=== PATIENT | male | born 1965 | race Caucasian/White ===

== ENCOUNTER 2023-05-17 06:29 | Day surgery (SDC) | payer MEDICARE, OTHER, SELFPAY ==
[2023-05-12 09:28] VITALS: BMI 30.1
[2023-05-17] VITALS (24 sets, daily range): BP systolic 108–168; BP diastolic 69–111; BMI 30.1; BMI 31.7
[2023-05-17] MEDS: NORMOSOL-R 1000 IV (09:00)
[2023-05-17 09:04] LABS: Glucose - Point of Care 96 mg/dl (70-99)
[2023-05-17 11:06] LABS: Glucose - Point of Care 77 mg/dl (70-99)
[2023-05-17 13:42] LABS: Glucose - Point of Care 100 mg/dl (70-99)
[2023-05-17] MEDS: NSS 1000 IV (14:05)
--- NOTE | 2023-05-17 16:18 | SUR.PHASEI ---
Patient with extended stay in PACU as no room available. CBI running well, snack given at 1500 as patient is a diabetic. Patient repositioned as over 2 hours in PACU. VSS. Dedra Pedro RN BSN.
[2023-05-17 18:49] LABS: Glucose - Point of Care 279 mg/dl (70-99)
[2023-05-17] MEDS: NOVOLOG vial 4 UNITS SC (18:56)
--- NOTE | 2023-05-17 18:59 | SUR.PHASEI ---
Report given to Mellissa. Dedra hlal RN BSN.
[2023-05-17] MEDS: MORPHINE SULFATE 4 MG IV (21:34)
[2023-05-17] MEDS: FLOMAX 0.400000000000000022 MG PO (21:36)
[2023-05-17] MEDS: GLUCOPHAGE 500 MG PO (21:36)
[2023-05-17] MEDS: APRESOLINE 25 MG PO (21:36)
[2023-05-17] MEDS: KLONOPIN 0.5 MG PO (21:39)
[2023-05-17] MEDS: LIPITOR 10 MG PO (21:39)
[2023-05-17] MEDS: ARICEPT 10 MG PO (21:39)
[2023-05-17] MEDS: NAMENDA 10 MG PO (21:39)
[2023-05-17] MEDS: COGENTIN 0.5 MG PO (23:43)
[2023-05-17] MEDS: RISPERDAL 3 MG PO (23:43)
[2023-05-18 03:48] VITALS: BP 129/78
[2023-05-18 06:02] LABS: Hematocrit 38.2 % (39.0-52.0); Hemoglobin 12.8 g/dL (13.0-18.0)
[2023-05-18 06:26] LABS: Blood Urea Nitrogen 19 mg/dl (9-20); Carbon Dioxide 30 mmol/L (22-30); Chloride 98 mmol/L (98-107); Estimated Creatinine Clearance 90 ml/min; Glucose 87 mg/dl (70-99); Potassium 4.5 mmol/L (3.5-5.1); Sodium 136 mmol/L (135-145); eGFR > 60.00
[2023-05-18 07:35] VITALS: BP 112/79
[2023-05-18 08:09] LABS: Glucose - Point of Care 82 mg/dl (70-99)
[2023-05-18] MEDS: PAXIL 40 MG PO (08:18)
[2023-05-18] MEDS: KLONOPIN 0.5 MG PO (08:18)
[2023-05-18] MEDS: NAMENDA 10 MG PO (08:21)
[2023-05-18] MEDS: GLUCOPHAGE 500 MG PO (08:21)
[2023-05-18] MEDS: RISPERDAL 1 MG PO (08:21)
[2023-05-18] MEDS: PROSCAR 5 MG PO (08:21)
[2023-05-18] MEDS: APRESOLINE 25 MG PO (08:22)
[2023-05-18] MEDS: NORVASC 5 MG PO (08:22)
[2023-05-18 08:25] VITALS: BP 112/79
--- NOTE | 2023-05-18 08:52 | W.PN.URO.CBU ---
Today's Communication / Plan
-
TOV
Discharge
Assessment / Plan
-
57M POD 1 s/p TURP
Trial of void this AM
Discharge
Diagnosis
-
Date of Service: May 18, 2023
-
Patient Diagnosis:
BPH
Post Op Day: 1 s/p TURP
Subjective
-
No events overnight
Objective
-
Vital Signs
Temp Pulse Resp BP Pulse Ox
97.8 F 79 16 112/79 95
05/18/23 07:35 05/18/23 08:22 05/18/23 07:35 05/18/23 08:22 05/18/23 07:35
Intake and Output
05/17/23 05/18/23 05/19/23
06:59 06:59 06:59
Intake Total 2450 / 2450
Output Total 3080 / 3080
Balance -630 / -630
Intake:
Oral fluids 1775 / 1775
IV fluids (Total) 675 / 675
Nss 1,000 ml @ 125 mls/hr IV . 625 / 625
Q8H LUDIVINA Rx#:[id number]
norm 50 / 50
Output:
True Urine Output from CBI 3080 / 3080
Laboratory Results
05/18/23 05:41
05/18/23 05:41
Physical Exam
-
General - well developed, well nourished, no acute distress
Chest - clear
Abdomen - soft, non-tender
Nichols in place, clear pink urine off CBI
Skin - warm & dry with no rash
Neuro - AOx3, no motor deficits
Extremities - no clubbing, no cyanosis, no edema
[2023-05-18 09:40] LABS: Glycohemoglobin (HgbA1c) 5.8 % (4.0-5.6)
[2023-05-18 11:31] VITALS: BP 115/80
[2023-05-18 11:35] LABS: Glucose - Point of Care 144 mg/dl (70-99)
--- NOTE | 2023-05-18 12:03 | CM ---
Addendum entered by Geraldine Barlow RN 05/18/23 15:19:
CM spoke with [facility], they will transport at time of discharge. SAMAN reece.
Addendum entered by Geraldine Barlow RN 05/18/23 12:12:
CM spoke with [facility] staff member. The pharmacy they use is [facility] ([phone]). This is not in our system.
Original Note:
Reviewed the chart notes and spoke with the patient at the bedside. The patient resides at [facility] and has a roommate. Per patient, the home is a one story home with a flight to enter. The patient reports no DME/VN/SNF in the past. The
patient had dangelo removed and is waiting to void. CM continues to be available to patient/family and is monitoring medical plan for needs at discharge.
Plan: Discharge back to [facility] with no additional needs being identified at this time.
[2023-05-18 15:49] VITALS: BP 117/76
== END 2023-05-18 16:25 | disposition home or self-care (01) ==
LOC: SDS 06:29
PROVIDERS: ATTENDING PHYSICIAN Urology
DX: N40.1 Benign prostatic hyperplasia with lower urinary tract symptoms (principal); N13.8 Other obstructive and reflux uropathy
CPT/HCPCS: 52630; 88305; 80048; 82962; 83036; 85014; 85018; 87070; 88344

== ENCOUNTER 2023-06-03 09:38 | Emergency (ER) | payer MEDICARE, OTHER, SELFPAY ==
[2023-06-03 09:39] VITALS: BP 116/66
--- NOTE | 2023-06-03 10:21 | ED.GENMED ---
History of Present Illness
General
Chief Complaint: Urinary Symptoms
Source: patient, records and youth care specialist
Exam Limitations: developmental stage
Time Seen by Provider: 06/03/23 10:01
Nursing documentation reviewed up to this point in time: agreed with
Travel History
Have you had any contact with someone who has COVID-19?: No
Do you have any symptoms of coronavirus? Fever > 100 degrees, chills, cough, shortness of breath, sore throat, loss of taste or smell, muscle aches, or headache?: No
History of Present Illness
History of Present Illness:
57-year-old male special-needs with his caregiver presents with urinary burning frequency some blood had prostate biopsy TURP few weeks ago
No fevers no nausea no vomiting
No abdominal pain
Past History
Past History
ED Past Medical History: HTN, Hypercholesterolemia, Psychiatric (Schizophrenia, depression) and Other (BPH, urinary retention)
ED Past Surgical History: Urological
Social History
Tobacco: Non-smoker
Alcohol: None
Drug: None
Personal: Single
Living: with roommate ([facility])
Employment: Not employed
Review of Systems
Review of Systems
All Other Systems: Not applicable
Constitutional: Denies fever or fatigue
ABD/GI: Denies abdominal pain or diarrhea
: Reports dysuria, frequency, urgency and bleeding; Denies flank pain
Phy Exam
Physical Exam
Physical Exam:
Physical Exam
General: no apparent distress, not acutely ill
Neck: No jaundice
Heart: s1/s2 regular rate and rhythm, no murmur. equal radial pulses.
Lungs: no acute respiratory distress. clear bilaterally
Abdomen: Soft not tender
Neuro: alert and oriented. no focal neurological deficits
Skin: no rash
Psychiatric: well kept. interactive and cooperative
Extremities: no edema.
Course
Orders/Labs/Results
Orders:
Orders
06/03/23 09:47
Bladder Scan- Treatment ONCE
06/03/23 11:19
Urinalysis Reflex To Culture Urgent
Date Specimen was Collected: 06/03/23
Time Specimen was Collected:
Urine Microscopic Reflex Cult Urgent
Urine Culture Urgent
BARRY Source: U
Specimen Description:
Obtained by: Random
Date Specimen was Collected: 06/03/23
Time Specimen was Collected: :
06/03/23 12:31
Amoxicillin 875 mg/Clav 125 mg [Augmentin 875 mg/125 mg] 1 tablet PO NOW STA
Abnormal Lab Results
06/03/23
11:19
Urine Ketones 1+ A
(Negative)
Ur Occult Blood Reflex 4+ A
(Negative)
Urine Nitrite (Reflex) Positive A
(Negative)
Urine Bilirubin 1+ A
(Negative)
Leukocyte Esterase Rfl 2+ A
(Negative)
Urine RBC >100 A /HPF
(0-2)
Urine WBC (Reflex) 16-20 A /HPF
(0-5)
Urine Bacteria (Reflex) Moderate A
(Negative)
Urine Albumin (Reflex) 3+ A
(Neg - Trace)
Vital Signs
Initial and Last Documented VS:
Initial Vital Signs
Temp Pulse Resp BP Pulse Ox
97.7 F 66 20 116/66 96
06/03/23 09:39 06/03/23 09:39 06/03/23 09:39 06/03/23 09:39 06/03/23 09:39
Last Documented Vital Signs
Temp Pulse Resp BP Pulse Ox
97.7 F 71 16 129/77 95
06/03/23 09:39 06/03/23 12:08 06/03/23 12:08 06/03/23 12:08 06/03/23 12:08
MDM/Problems Addressed
Differential Diagnosis Includes:
UTI clot retention postop hematuria
MDM/Problems Addressed:
Hematuria. Frequent
Chronic conditions affecting care:
Special needs developmentally challenged
*Pulse Oximetry
Patient hypoxic: no
*Critical Care Note
Total Time (30-74mins, 75-104mins- exclusive of procedures): Not Applicable
Update Note
Update Note:
Update bladder scan noted patient not in retention will check urinalysis
1230 UA noted culture pending will start on antibiotics
ED Attending Note
-
Portions of this chart may have been created with voice recognition software.� Occasional wrong word or��sound alike� substitutions may have occurred due to the inherent limitations of voice recognition software.
Discharge Plan
Departure
Patient Disposition: Home (Routine Discharge)
Date of Disposition: 06/03/23
Time of Disposition: 12:32
Patient with high blood pressure during this ER visit?: No
Condition: Good
Discharge Problem:
Acute UTI
Instructions: Urinary Tract Infection, Adult (DC), Blood in the Urine (Hematuria), Adult (DC)
Prescriptions:
New
amoxicillin-pot clavulanate [Augmentin] 500-125 mg tablet
1 tab PO BID Qty: 14 0RF
phenazopyridine [Pyridium] 200 mg tablet
200 mg PO TID PRN (Reason: Pain) Qty: 6 0RF
No Action
atorvastatin 10 MG tablet
10 mg PO HS
metformin 500 MG tablet
500 mg PO BID
hydralazine 25 MG tablet
25 mg PO BID
amlodipine 5 MG tablet
5 mg PO DAILY
tamsulosin 0.4 MG capsule
0.4 mg PO DAILY@1600
benztropine 0.5 mg tablet
0.5 mg PO HS
clonazepam 1 mg tablet
0.5 mg PO BID
risperidone 3 mg tablet
3 mg PO HS
oxybutynin chloride 5 mg tablet extended release 24hr
5 mg PO DAILY@1600
paroxetine HCl 40 mg tablet
40 mg PO DAILY
risperidone 1 mg tablet
1 mg PO DAILY
memantine 10 mg tablet
10 mg PO BID
donepezil [Aricept] 10 mg Tablet
10 mg PO HS
finasteride 5 mg Tablet
5 mg PO DAILY
Referrals:
Maurice Nieves DO [Family Provider] -
Interventions
Interventions:
*General Assessment Last Done: 06/03/23 10:57
ED- Fall Risk Assessment Last Done: 06/03/23 10:57
*ED COVID-19 Vaccine History Last Done: 06/03/23 09:39
Discharge Date and Time
Print Language: GAMBIAN
[2023-06-03 11:44] LABS: Urine Albumin 3+ (Neg - Trace); Urine Bilirubin 1+ (Negative); Urine Character Very Cloudy (Clear); Urine Color Amber; Urine Glucose Negative (Negative); Urine Ketone 1+ (Negative); Urine Leukocyte 2+ (Negative); Urine Nitrite Positive (Negative); Urine Occult Blood 4+ (Negative); Urine Urobilinogen 1+ (Neg - 1+)
[2023-06-03 12:08] VITALS: BP 129/77
[2023-06-03 12:11] LABS: Urine Bacteria Moderate (Negative); Urine Red Blood Cell >100 /HPF (0-2)
[2023-06-03 12:12] LABS: Urine White Cell 16-20 /HPF (0-5)
[2023-06-03] MEDS: AUGMENTIN 875 MG/125 MG 1 TABLET PO (12:45)
== END 2023-06-03 12:58 | disposition home or self-care (01) ==
LOC: EMR 09:38
PROVIDERS: EMERGENCY PHYSICIAN Emergency Medicine; FAMILY PHYSICIAN Family Medicine
DX: N39.0 Urinary tract infection, site not specified (principal); I10 Essential (primary) hypertension; N40.1 Benign prostatic hyperplasia with lower urinary tract symptoms; R33.8 Other retention of urine; E78.00 Pure hypercholesterolemia, unspecified; F20.9 Schizophrenia, unspecified; F32.A Depression, unspecified; F03.90 Unspecified dementia, unspecified severity, without behavioral disturbance, psychotic disturbance, mood disturbance, and anxiety; N17.9 Acute kidney failure, unspecified; E11.9 Type 2 diabetes mellitus without complications; F41.9 Anxiety disorder, unspecified; F31.9 Bipolar disorder, unspecified; Z85.51 Personal history of malignant neoplasm of bladder; Z98.890 Other specified postprocedural states
CPT/HCPCS: 99283; 51798; 81003; 81015; 87077; 87086; 87186

== ENCOUNTER 2023-10-28 13:30 | Emergency (ER) | payer MEDICARE, MEDICAID, SELFPAY ==
[2023-10-28 13:33] VITALS: BP 160/94
[2023-10-28 13:35] LABS: Glucose - Point of Care 90 mg/dl (70-99)
[2023-10-28 14:07] LABS: % Basophils 0.4 % (0-2); % Eosinophils 1.3 % (0-6); % Immature Granulocytes 0.3 % (0-0.5); % Lymphocytes 32.4 % (20.5-51.1); % Monocytes 9.7 % (1.7-9.3); % Neutrophils 55.9 % (42.2-75.2); Absolute Eosinophils 0.1 10^3/uL (0-0.7); Absolute Lymphocytes 2.3 10^3/uL (1.2-3.4); Absolute Monocytes 0.7 10^3/uL (0.1-0.6); Hematocrit 39.1 % (39.0-52.0); Mean Corp Hgb Conc. 33.2 g/dL (33.0-37.0); Mean Corpuscular Hgb 29.1 pg (27.0-31.0); Mean Corpuscular Volume 87.7 fL (80.0-94.0); Mean Platelet Volume 9.3 fL (7.4-10.4); Nucleated Red Blood Cells % 0 % (-); Platelet Count 203 10^3/uL (130-400); Red Blood Cell Count 4.46 10^6/uL (4.70-6.10); Red Cell Dist. Width 13.1 % (11.5-14.5); White Blood Cell Count 7.1 10^3/uL (4.8-10.8)
--- NOTE | 2023-10-28 14:18 | ED.GENMED ---
History of Present Illness
General
Chief Complaint: Change in Mental Status
Source: patient and weekend caregiver
Time Seen by Provider: 10/28/23 13:55
History of Present Illness
History of Present Illness:
58-year-old male with a history of diabetes, schizophrenia, bipolar disorder who presents to staff noticed he was sort of staring off and drooling. They did not see any seizure activity. The patient my evaluation offers no complaints and feels
well. Patient's caregiver states that they just want a get him checked out. He otherwise has been doing well. No noted fevers.
Past History
Past History
ED Past Medical History: HTN, Hypercholesterolemia, Psychiatric (Schizophrenia, depression) and Other (BPH, urinary retention)
ED Past Surgical History: Urological
Social History
Tobacco: Non-smoker
Alcohol: None
Drug: None
Personal: Single
Living: with roommate ([facility] [employer] [facility])
Employment: Not employed
Phy Exam
Physical Exam
Physical Exam:
CONSTITUTIONAL Patient alert and oriented to person, place and time. Well-appearing. Vital signs reviewed.
HEAD atraumatic, normocephalic.
EYES eyelids normal to inspection, Pupils equally round and reactive to light, Extraocular muscles intact, Conjunctiva normal, Sclera normal.
NECK normal range of motion, Trachea midline, no jugular venous distention.
RESPIRATORY CHEST No respiratory distress noted, Chest expansion equal, Bilateral breath sounds clear.
CARDIOVASCULAR regular rate and rhythm, Heart sounds normal.
ABDOMEN abdomen nontender, Bowel sounds normal. No distention.
BACK normal inspection, no obvious deformities
UPPER EXTREMITY range of motion normal, Motor strength normal, no cyanosis, no edema.
LOWER EXTREMITY range of motion normal, Motor strength normal, no cyanosis, no edema.
NEURO Speech normal, No focal motor deficits, [place] coma scale 15, Memory normal, Cranial Nerves intact to screening exam.
SKIN skin warm, dry, and normal in color.
Course
Orders/Labs/Results
Orders:
Orders
10/28/23 13:38
EKG [Electrocardiogram (*1)] Urgent
Reason for Study: Vertigo / Dizzy
10/28/23 13:39
EKG- Treatment ONCE
10/28/23 13:53
CBC/With Diff [Complete Blood Count/With Diff] Urgent
CMP [Comprehensive Metabolic Panel] Urgent
10/28/23 14:18
CT Head W/o Iv Contrast Urgent
Comment:
Reason For Exam: change in ms
10/28/23 16:51
Vital Signs- Treatment ONCE
Frequency: Once
Abnormal Lab Results
10/28/23
13:53
RBC 4.46 L 10^6/uL
(4.70-6.10)
Absolute Monos (auto) 0.7 H 10^3/uL
(0.1-0.6)
Monocytes % 9.7 H %
(1.7-9.3)
Carbon Dioxide 33 H mmol/L
(22-30)
10/28/23 13:53
10/28/23 13:53
Vital Signs
Initial and Last Documented VS:
Initial Vital Signs
Temp Pulse Resp BP Pulse Ox
99.1 F 52 18 160/94 94
10/28/23 13:33 10/28/23 13:33 10/28/23 13:33 10/28/23 13:33 10/28/23 13:33
Last Documented Vital Signs
Temp Pulse Resp BP Pulse Ox
98.4 F 56 37 156/93 92
10/28/23 18:07 10/28/23 16:55 10/28/23 16:55 10/28/23 16:55 10/28/23 16:55
MDM/Problems Addressed
MDM/Problems Addressed:
Acute on chronic hypertension, change in mental status resolved
*Radiology
Radiology exam reviewed: radiology read reviewed
*Pulse Oximetry
Patient hypoxic: no
*EKG
Interpreted by ED Provider?: Yes
Interpretation: abnormal
Rate: bradycardiac
Rhythm: sinus
[place]: normal axis
Interval: normal interval
QRS Pattern: normal QRS
Ischemia: no ischemia
*Relationship Management Lead Interpretation
Rate: bradycardiac
Interpretation: abnormal
Rhythm: sinus
*Critical Care Note
Total Time (30-74mins, 75-104mins- exclusive of procedures): Not Applicable
Data Reviewed
Source: patient and weekend caregiver
Patient Management
Escalation/DeEscalation of care consider admission/obs:
Patient offers no symptoms. He appears well at this time. Do not suspect seizure but may need further follow-up if symptoms recur or persist. Otherwise is well-appearing in ED workup grossly unremarkable.
ED Attending Note
-
Portions of this chart may have been created with voice recognition software.� Occasional wrong word or��sound alike� substitutions may have occurred due to the inherent limitations of voice recognition software.
Discharge Plan
Departure
Patient Disposition: Home (Routine Discharge)
Date of Disposition: 10/28/23
Time of Disposition: 16:51
Patient with high blood pressure during this ER visit?: Yes
Discharge Problem:
Altered mental status
Instructions: Altered Mental Status (DC), BLOOD PRESSURE
Prescriptions:
No Action
atorvastatin 10 MG tablet
10 mg PO HS
metformin 500 MG tablet
500 mg PO BID
hydralazine 25 MG tablet
25 mg PO BID
amlodipine 5 MG tablet
5 mg PO DAILY
tamsulosin 0.4 MG capsule
0.4 mg PO DAILY@1600
benztropine 0.5 mg tablet
0.5 mg PO HS
clonazepam 1 mg tablet
0.5 mg PO BID
risperidone 3 mg tablet
3 mg PO HS
oxybutynin chloride 5 mg tablet extended release 24hr
5 mg PO DAILY@1600
paroxetine HCl 40 mg tablet
40 mg PO DAILY
risperidone 1 mg tablet
1 mg PO DAILY
memantine 10 mg tablet
10 mg PO BID
donepezil [Aricept] 10 mg Tablet
10 mg PO HS
finasteride 5 mg Tablet
5 mg PO DAILY
amoxicillin-pot clavulanate [Augmentin] 500-125 mg tablet
1 tab PO BID Qty: 14 0RF
phenazopyridine [Pyridium] 200 mg tablet
200 mg PO TID PRN (Reason: Pain) Qty: 6 0RF
Referrals:
Maurice Nieves DO [Family Provider] -
Activity Restrictions/Additional Instructions:
Please see your doctor in the next 3 to 5 days for follow-up and reevaluation. Return immediately for chest pain, shortness of breath, palpitations, weakness of any kind or any other concerns.
Interventions
Interventions:
*Risk Screen - Suicide Last Done: 10/28/23 13:33
*General Assessment Last Done: 10/28/23 13:33
*Neglect/Abuse Screening Last Done: 10/28/23 13:33
*Nursing Disposition Last Done: 10/28/23 18:07
ED- Neurological Assessment Last Done: 10/28/23 13:42
ED Swallowing Screen Last Done: 10/28/23 16:56
Discharge Date and Time
Discharge Date/Time: 10/28/23 18:08
Print Language: MAORI
[2023-10-28 14:25] LABS: ALT (SGPT) 20 U/L (0-50); AST (SGOT) 26 U/L (17-59); Albumin 4.4 g/dl (3.5-5.0); Alkaline Phosphatase 64 U/L (38-126); Blood Urea Nitrogen 18 mg/dl (9-20); Calcium 9.5 mg/dl (8.4-10.2); Carbon Dioxide 33 mmol/L (22-30); Chloride 98 mmol/L (98-107); Glucose 92 mg/dl (70-99); Potassium 4.1 mmol/L (3.5-5.1); Sodium 140 mmol/L (135-145); Total Bilirubin 0.4 mg/dl (0.2-1.3); Total Protein 6.8 g/dl (6.3-8.2); eGFR > 60.00
[2023-10-28 15:00] VITALS: BP 153/91
[2023-10-28 16:55] VITALS: BP 156/93
[2023-10-28 17:17] LABS: Glucose - Point of Care 84 mg/dl (70-99)
== END 2023-10-28 18:08 | disposition home or self-care (01) ==
LOC: EMR 13:30
PROVIDERS: Emergency Medicine; EMERGENCY PHYSICIAN Emergency Medicine; FAMILY PHYSICIAN Family Medicine
DX: R41.82 Altered mental status, unspecified (principal); I10 Essential (primary) hypertension; E11.9 Type 2 diabetes mellitus without complications; F20.9 Schizophrenia, unspecified; F31.9 Bipolar disorder, unspecified
CPT/HCPCS: 99285; 70450; 80053; 82962; 85025; 93005

== ENCOUNTER 2024-06-19 19:41 | Emergency (ER) | payer OTHER, SELFPAY ==
[2024-06-19 19:48] VITALS: BP 161/87
[2024-06-19 20:04] LABS: % Basophils 0.3 % (0-2); % Eosinophils 0.5 % (0-6); % Immature Granulocytes 0.3 % (0-0.5); % Lymphocytes 18.3 % (20.5-51.1); % Monocytes 9.6 % (1.7-9.3); Absolute Lymphocytes 1.1 10^3/uL (1.2-3.4); Absolute Monocytes 0.6 10^3/uL (0.1-0.6); Absolute Neutrophils 4.3 10^3/uL (1.4-6.5); Hemoglobin 14.1 g/dL (13.0-18.0); Mean Corp Hgb Conc. 33.6 g/dL (33.0-37.0); Mean Corpuscular Hgb 29.7 pg (27.0-31.0); Mean Corpuscular Volume 88.6 fL (80.0-94.0); Nucleated Red Blood Cells % 0 % (-); Platelet Count 155 10^3/uL (130-400); Red Blood Cell Count 4.74 10^6/uL (4.70-6.10); Red Cell Dist. Width 12.6 % (11.5-14.5)
[2024-06-19 20:26] LABS: Troponin I < 0.012 ng/ml
[2024-06-19 20:30] LABS: ALT (SGPT) 21 U/L (0-50); AST (SGOT) 26 U/L (17-59); Albumin 5.1 g/dl (3.5-5.0); Alkaline Phosphatase 86 U/L (38-126); Blood Urea Nitrogen 18 mg/dl (9-20); Calcium 9.2 mg/dl (8.4-10.2); Carbon Dioxide 31 mmol/L (22-30); Chloride 99 mmol/L (98-107); Glucose 94 mg/dl (70-99); Sodium 138 mmol/L (135-145); Total Bilirubin 0.8 mg/dl (0.2-1.3); Total Protein 7.8 g/dl (6.3-8.2); eGFR > 60.00
[2024-06-19 22:50] VITALS: BP 145/95
[2024-06-20] VITALS: BP 152/93
[2024-06-20 00:19] VITALS: BMI 31.8
--- NOTE | 2024-06-20 00:19 | ED.GENMED ---
History of Present Illness
General
Chief Complaint: Chest Pain
Source: patient
Time Seen by Provider: 06/19/24 23:50
History of Present Illness
History of Present Illness:
Pleasantly demented 58-year-old male presents to the emergency department chest pain and cough. Patient resides in [facility] which is an inpatient fci.patient has schizoaffective disorder. History is limited due to patient condition.
Patient is accompanied by case picker
Vital signs are stable. Patient not hypoxic
Nursing note reviewed. I agree with nursing documentation up to this point in time.
Home Meds and allergies reviewed.
NUMBER AND COMPLEXITY OF PROBLEMS ADDRESSED AT THE ENCOUNTER
� Chronic conditions affecting care:
� Acute Exacerbation and/or Progression of Chronic Illness:
� Differential Diagnosis includes: Pneumonia, bronchitis, URI
AMOUNT AND/OR COMPLEXITY OF DATA TO BE REVIEWED AND ANALYZED
I performed an independent evaluation of the following and my interpretation is:
EKG: EKG shows normal sinus rhythm rate of 68 with normal intervals, indeterminate axis. No evidence of acute ischemia present. Compared with previous EKG dated October 2023, no obvious morphology change noted.
Pulse Ox: Not Hypoxic
Extract Mixer: Sinus Rhythm
CT:
X-rays:
Ultrasound:
Laboratory Studies: Troponin negative
Other:
Review of other/old records:
Clinical information was obtained by an independent historian:
Prescriptions/Medications Considered but not given:
Further testing considered but not performed:
RISK OF COMPLICATIONS AND/OR MORBIDITY OR MORTALITY OF PATIENT MANAGEMENT
Social determinants of health affecting care: Good Social Support
Discussion with other providers:
Escalation of care including admission/observation vs risk of discharge considered: After being observed in the emergency department, patient is
CRITICAL CARE NOTE:
Total Time (exclusive of procedures):
Update:
Past History
Past History
ED Past Medical History: HTN, Hypercholesterolemia, Psychiatric (Schizophrenia, depression) and Other (BPH, urinary retention)
ED Past Surgical History: Urological
Social History
Tobacco: Non-smoker
Alcohol: None
Drug: None
Personal: Single
Living: with roommate ([facility])
Employment: Not employed
Phy Exam
General Physical Exam
General Presentation: well appearing and no apparent distress
General Skin: warm and dry
General Habitus: normal
General Mental: alert
General Hydration: appears well hydrated
ENT Exam
ENT Exam: EOMI, pharynx normal, neck supple and normocephalic
Eye Exam
Eye Exam: PERRL, cornea clear and conjunctiva normal
Cardiovascular Exam
Cardiovascular Exam: regular rate/rhythm, no edema, no murmur and normal peripheral pulses
Pulmonary Exam
Pulmonary Exam: lungs clear, no respiratory distress, no rales, no crackles, no rhonchi, no stridor and generalized wheezing
Cough: coarse cough
Breath Sounds: Wheeze: right upper and right lower
Gastrointestinal Exam
Gastrointestinal Exam: normal bowel sounds, non tender, soft, no organomegaly, no pulsatile mass and non distended
Neurological Exam
Neurological Exam: alert, oriented x3, no motor deficits and speech normal
Musculoskeletal Exam
Musculoskeletal Exam: full ROM and no edema
Skin Exam
Skin Exam: normal color, warm/dry, no rash and no petechia
Psychiatric Exam
Psychiatric Exam: normal mood/affect
Scores
Heart Score for Chest Pain Patients
STEMI patient?: Not applicable
Course
Orders/Labs/Results
Orders:
Orders
06/19/24 19:41
EKG [Electrocardiogram (*1)] Urgent
Reason for Study: Chest Pain
06/19/24 19:42
EKG- Treatment ONCE
06/19/24 19:56
Complete Blood Count/With Diff Urgent
Comprehensive Metabolic Panel Urgent
Troponin I Urgent
06/19/24 23:28
Troponin I Urgent
06/20/24 00:21
CR Chest - 2 Views Urgent
Comment:
Reason For Exam: cough
06/20/24 01:29
Amoxicillin [Amoxil] 1,000 mg PO NOW STA
Abnormal Lab Results
06/19/24
19:56
Absolute Lymphs (auto) 1.1 L 10^3/uL
(1.2-3.4)
Lymphocytes % 18.3 L %
(20.5-51.1)
Monocytes % 9.6 H %
(1.7-9.3)
Carbon Dioxide 31 H mmol/L
(22-30)
Albumin 5.1 H g/dl
(3.5-5.0)
06/19/24 19:56
06/19/24 19:56
Vital Signs
Initial and Last Documented VS:
Initial Vital Signs
Temp Pulse Resp BP Pulse Ox
99.3 F 75 18 161/87 92
06/19/24 19:48 06/19/24 19:48 06/19/24 19:48 06/19/24 19:48 06/19/24 19:48
Last Documented Vital Signs
Temp Pulse Resp BP Pulse Ox
99.3 F 65 15 128/92 93
06/19/24 19:48 06/20/24 01:00 06/20/24 01:00 06/20/24 01:00 06/20/24 01:00
*Radiology
Radiology exam reviewed: preliminary read by ED provider (Retrocardiac pneumonia. Seen on radiology screens as synapse seems to be down)
*Critical Care Note
Total Time (30-74mins, 75-104mins- exclusive of procedures): Not Applicable
ED Attending Note
-
Portions of this chart may have been created with voice recognition software.� Occasional wrong word or��sound alike� substitutions may have occurred due to the inherent limitations of voice recognition software.
Discharge Plan
Departure
Patient Disposition: Group Home/SNF
Date of Disposition: 06/20/24
Time of Disposition: 01:33
Condition: Good
Discharge Problem:
Pneumonia
Instructions: Pneumonia in adults, BLOOD PRESSURE
Prescriptions:
New
amoxicillin 500 mg capsule
1,000 mg PO Q12H 7 Days Qty: 28 0RF
No Action
atorvastatin 10 MG tablet
10 mg PO HS
metformin 500 MG tablet
500 mg PO BID
hydralazine 25 MG tablet
25 mg PO BID
amlodipine 5 MG tablet
5 mg PO DAILY
tamsulosin 0.4 MG capsule
0.4 mg PO DAILY@1600
benztropine 0.5 mg tablet
0.5 mg PO HS
clonazepam 1 mg tablet
0.5 mg PO BID
risperidone 3 mg tablet
3 mg PO HS
oxybutynin chloride 5 mg tablet extended release 24hr
5 mg PO DAILY@1600
paroxetine HCl 40 mg tablet
40 mg PO DAILY
risperidone 1 mg tablet
1 mg PO DAILY
memantine 10 mg tablet
10 mg PO BID
donepezil [Aricept] 10 mg Tablet
10 mg PO HS
finasteride 5 mg Tablet
5 mg PO DAILY
amoxicillin-pot clavulanate [Augmentin] 500-125 mg tablet
1 tab PO BID Qty: 14 0RF
phenazopyridine [Pyridium] 200 mg tablet
200 mg PO TID PRN (Reason: Pain) Qty: 6 0RF
Activity Restrictions/Additional Instructions:
Thank You for choosing [facility].
It was a pleasure meeting you and taking part in your care. We hope for your continued healing and wellness.
Please read discharge instructions in their entirety. However, they are for general education and may not describe your exact diagnosis at discharge. Information on your ER visit and medical conditions were discussed with you along with appropriate
follow up information...
If indicated, please take your medications as instructed and indicated on discharge paperwork.
Please schedule a follow up appointment as directed. Call to schedule an appointment
Please return to the emergency department with ANY change in, persisting, or worsening of symptoms. If any of your symptoms do not improve, or persist, or become more severe within 6-12 hours, please return to the emergency department for further
care.
Please return to the emergency department if you develop a headache, neck pain/stiffness, fever greater than 100.4F, chest pain, shortness of breath, persistent nausea, vomiting, slurred speech, difficulty walking, numbness/tingling, weakness, signs
of infection or any other symptoms that are worrisome to you.
If you have any questions or concerns please do not hesitate to call the Hospital at
Interventions
Interventions:
*Risk Screen - Suicide Last Done: 06/19/24 19:48
*General Assessment Last Done: 06/19/24 19:48
*Neglect/Abuse Screening Last Done: 06/20/24 00:19
*ED- Fall Risk Assessment Last Done: 06/20/24 00:19
*ED COVID-19 Vaccine History Last Done: 06/19/24 19:48
*Nursing Disposition Last Done: 06/20/24 02:10
ED- Cardiac Assessment Last Done: 06/20/24 00:19
Discharge Date and Time
Discharge Date/Time: 06/20/24 02:37
Print Language: HUNGARIAN
[2024-06-20 00:30] VITALS: BP 140/81
[2024-06-20 00:38] LABS: Troponin I < 0.012 ng/ml
[2024-06-20 01:00] VITALS: BP 128/92
[2024-06-20] MEDS: AMOXIL 1000 MG PO (01:43)
== END 2024-06-20 02:37 ==
LOC: EMR 19:41
PROVIDERS: Student in an Organized Health Care Education/Training Program; EMERGENCY PHYSICIAN Student in an Organized Health Care Education/Training Program; FAMILY PHYSICIAN Family Medicine
DX: J18.9 Pneumonia, unspecified organism (principal); I10 Essential (primary) hypertension; E78.00 Pure hypercholesterolemia, unspecified; F03.93 Unspecified dementia, unspecified severity, with mood disturbance
CPT/HCPCS: 99285; 71046; 80053; 84484; 85025; 93005